=== PATIENT | female | born 1955 | race Caucasian/White ===

== ENCOUNTER 2018-02-23 07:30 | Emergency (ER) | payer BC ==
[2018-02-23 07:38] VITALS: TEMP 97.8
[2018-02-23] MEDS ORDERED: OXYMETAZOLINE 0.05% NASL SPRAY 1 SPRAY BOTTLE NASAL STA (08:17)
[2018-02-23] MEDS ORDERED: LIDOCAINE/EPINEPHR/TETRACAINE 5 ML BOTTLE TOPICAL ONE (08:17)
--- NOTE | 2018-02-23 08:41 | ED ---
General Adult HPI - General Chief complaint: ENT Stated complaint: Bloody nose Time Seen by Provider: 02/23/18 08:16 Source: patient, RN notes reviewed Mode of arrival: wheelchair Limitations: no limitations - History of Present Illness Initial comments: Patient is a 62-year-old female presented to the emergency room today with a chief complaint of epistaxis. She states that she's had some nosebleeds off and on over the last month. She does not that she had a sinus infection previous which she believes may be the cause. She states she only takes a baby aspirin. She states she had heavier bleeding this morning after getting to work. She states is most coming from the right side at times have blood on the left nostril. Patient denies any other complaints currently. Patient denies any recent fever, chills, shortness of breath, chest pain, back pain, abdominal pain, nausea or vomiting, numbness or tingling, dysuria or hematuria, constipation or diarrhea, headaches or visual changes, or any other complaints. - Related Data Home Medications Medication Instructions Recorded Confirmed Enalapril [Vasotec] 20 mg PO DAILY 02/23/18 02/23/18 Levothyroxine Sodium [Synthroid] 50 mcg PO DAILY 02/23/18 02/23/18 Metoprolol Tartrate [Lopressor] 50 mg PO BID 02/23/18 02/23/18 Simvastatin [Zocor] 10 mg PO HS 02/23/18 02/23/18 metFORMIN HCL 1,000 mg PO BID 02/23/18 02/23/18 Allergies Allergy/AdvReac Type Severity Reaction Status Date / Time No Known Allergies Allergy Verified 02/23/18 07:51 Review of Systems ROS Statement: Those systems with pertinent positive or pertinent negative responses have been documented in the HPI. ROS Other: All systems not noted in ROS Statement are negative. Past Medical History Past Medical History: Diabetes Mellitus, Hyperlipidemia, Hypertension History of Any Multi-Drug Resistant Organisms: None Reported Additional Past Surgical History / Comment(s): cataract, Past Psychological History: No Psychological Hx Reported Smoking Status: Never smoker Past Alcohol Use History: None Reported Past Drug Use History: None Reported General Exam - General Exam Comments Initial Comments: General: The patient is awake and alert, in no distress, and does not appear acutely ill. Eye: Pupils are equal, round and reactive to light. Extra-ocular movements are intact. No nystagmus. There is normal conjunctiva bilaterally. No signs of icterus. Ears, nose, mouth and throat: There are moist mucous membranes and no oral lesions. Patient does have active bleeding coming from the right nostril. Nothing appreciated on the left. There is blood in the posterior pharynx. Neck: The neck is supple, there is no tenderness or JVD. Cardiovascular: There is a regular rate and rhythm. No murmur, rub or gallop is appreciated. Respiratory: Lungs are clear to auscultation, respirations are non-labored, breath sounds are equal. No wheezes, stridor, rales, or rhonchi. Musculoskeletal: Normal ROM, no tenderness. Sensation intact. Strength 5/5. Pulses equal bilaterally 2+. Neurological: A&O x 3. CN II-XII intact, There are no obvious motor or sensory deficits. Coordination appears grossly intact. Speech is normal. Skin: Skin is warm and dry and no rashes or lesions are noted. Psychiatric: Cooperative, appropriate mood & affect, normal judgment. Limitations: no limitations Course Vital Signs 02/23/18 07:36 Temperature 97.8 F Pulse Rate 89 Respiratory 18 Rate Blood Pressure 164/91 O2 Sat by Pulse 98 Oximetry Medical Decision Making - Medical Decision Making Patient did have epistaxis coming from the right side. She did have a lidocaine epinephrine tetracaine mixture placed on a cotton ball and placed in the right naris after 2 sprays of Afrin in each nostril. This was left in for approximately 25 minutes. It was taken out and bleeding had stopped. There is no evidence for any anterior nosebleed at this time. Nothing to cauterize. There is no active bleeding. Options were discussed with patient that it could be a posterior nose bleed and packing would be the treatment. This time she is not bleeding posterior pharynx clear. She has declined packing. Patient will be discharged home with nasal clams is advised to use these if bleeding recurs for 20 minutes if rebleeding is uncontrolled return here to the emergency room. She'll be given information for ENT to follow-up with. She is advised return for any other concerns. Disposition Clinical Impression: Epistaxis Disposition: HOME SELF-CARE Condition: Good Instructions: Nosebleed (ED) Additional Instructions: Please follow-up with ENT as discussed. Please use nasal clamp bleeding recurs for 20 minutes with his uncontrolled return here to the emergency room. Is patient prescribed a controlled substance at d/c from ED?: No Referrals: Brittany Serrano MD [Primary Care Provider] - 1-2 days Ulises Nicholson MD [STAFF PHYSICIAN] - 1-2 days Time of Disposition: 09:59
[2018-02-23] MEDS ORDERED: SILVER NITRATE APPLICATOR 1 EACH STICK..EA. TOPICAL STA (09:11)
[2018-02-23 10:15] VITALS: BP 148/78; PULSE 78; RESP 16
== END 2018-02-23 10:05 | disposition home or self-care (01) ==
LOC: EC 07:30
DX: R04.0 Epistaxis (principal); E11.9 Type 2 diabetes mellitus without complications; I10 Essential (primary) hypertension; E78.5 Hyperlipidemia, unspecified; Z79.84 Long term (current) use of oral hypoglycemic drugs; Z79.899 Other long term (current) drug therapy
CPT/HCPCS: 30901; 99283